=== PATIENT | female | born 1960 | race Hispanic/Latino ===

== ENCOUNTER 2017-01-30 21:46 | Emergency (ER) | payer OTHER ==
[2017-01-30] MEDS ORDERED: Ketorolac Tromethamine 30 MG/ML VIAL ONE (22:22)
--- NOTE | 2017-01-30 22:47 | RAD ---
RADIOGRAPH RIGHT HAND THREE VIEWS: History: 56-year-old female with right hand pain. FINDINGS: There is no dislocation. No evidence of fracture. Minimal/mild DJD at first CMC. Minimal DJD at first MCP. The rest of the joint spaces are maintained without erosions or osteophytes. No soft tissue kristi cifications. IMPRESSION: 1. Minimal/mild osteoarthrosis of the first carpometacarpal joint. 2. Otherwise essentially normal. POS: [facility]
== END 2017-01-30 22:49 | disposition home or self-care (01) ==
LOC: ERS 21:46
DX: M19.041 Primary osteoarthritis, right hand (principal); E11.9 Type 2 diabetes mellitus without complications; E66.9 Obesity, unspecified; F41.9 Anxiety disorder, unspecified; G56.02 Carpal tunnel syndrome, left upper limb; I10 Essential (primary) hypertension; Z79.84 Long term (current) use of oral hypoglycemic drugs
CPT/HCPCS: 96372; J1885

== ENCOUNTER 2017-08-23 22:02 | Emergency (ER) | payer OTHER, SELFPAY ==
[2017-08-24] MEDS ORDERED: Fluconazole 100 MG TAB PO SCH (01:15)
[2017-08-24 01:23] LABS: Bilirubin Negative (Negative); Blood, Urine Trace (Negative); Clarity CLEAR (Clear); Glucose, Urine (Dipstick) >=1000 mg/dL (Negative); Leukocyte Moderate (Negative); Nitrite Negative (Negative); Protein, Urine (Dipstick) Negative (Neg-Trace); Specific Gravity, Urine 1.043 (1.002-1.036); Urobilinogen 0.2 mg/dL (0.2-1.0); pH, Urine 5.5 (5.0-9.0)
[2017-08-24 01:25] LABS: Bacteria/HPF 1+ HPF (None Seen); Hyaline Casts/LPF 0-3 HYALINE CAST LPF (0-3 Hyaline); Pathc Cast-AUWi Flag 0.58 (0-2.49); RBC/HPF 0-3 HPF (0-3); Squamous Epithelial 0-3 HPF (0-3)
[2017-08-25 22:20] LABS: Chlamydia by PCR Not Detected (NotDetected); GC by PCR Not Detected (NotDetected)
== END 2017-08-24 02:12 | disposition home or self-care (01) ==
LOC: ERS 22:02
DX: B37.3 Candidiasis of vulva and vagina (principal); B37.2 Candidiasis of skin and nail; I10 Essential (primary) hypertension; E11.9 Type 2 diabetes mellitus without complications; E66.9 Obesity, unspecified; F41.9 Anxiety disorder, unspecified
CPT/HCPCS: 36416; 81003; 81015; 87086; 87480; 87491; 87510; 87591; 87660; 99283

== ENCOUNTER 2019-03-20 11:54 | Emergency (ER) | payer SELFPAY ==
[2019-03-20 13:38] LABS: #Basophils 0.1 thou/uL (0.0-0.2); #Eosinphils 0.1 thou/uL (0.0-0.7); #Lymphocytes 3.1 thou/uL (1.20-3.40); #Monocytes 0.6 thou/uL (0.11-0.59); #Neutrophils 5.7 thou/uL (1.40-6.50); %Basophils 1.1 % (0.0-1.0); %Eosinophils 1.3 % (0.0-10.0); %Lymphocytes 32.3 % (21.0-51.0); %Monocytes 6.1 % (0.0-10.0); %Neutrophils 59.2 % (42.0-75.0); Hemoglobin 14.7 g/dL (12.0-16.0); Mean Corpuscular HGB CONC 34.1 g/dL (32.0-36.0); Mean Corpuscular Hemoglobin 29.5 pg (27.0-31.0); Mean Corpuscular Volume 86.4 fL (78.0-98.0); Mean Platelet Volume 7.8 fL (7.4-10.4); Platelet Count 273 thou/uL (130-400); RBC Distribution Width 12.3 % (11.5-14.5); Red Blood Cell (RBC) Count 4.97 mill/uL (4.20-5.40); White Blood Cell (WBC) Count 9.6 thou/uL (4.8-10.8)
[2019-03-20] MEDS ORDERED: Ketorolac Tromethamine 30 MG/ML VIAL ONE (13:43)
[2019-03-20] MEDS ORDERED: Dexamethasone 10 MG/ML VIAL ONE (13:44)
--- NOTE | 2019-03-20 13:54 | CT ---
EXAM: CT cervical spine PROVIDED CLINICAL HISTORY: Left arm pain with onset of symptoms this morning. TECHNIQUE: Contiguous axial CT images are obtained through the cervical spine from the skull base to the T3 leve l. Sagittal and coronal reformatted images are provided. COMPARISON: 03/01/2015 FINDINGS: Again noted are large bridging osteophytes anteriorly at the C4-5 level. Mild scattered degenerative changes are again seen within the cervical and upper thoracic spine which is not significantly progressed when compared to the prior exam. There is no bony encroachment on the central spinal canal or neural foramina of the cervical spine. Prominent degenerative changes are seen at the articulation of the odontoid with the anterior arch of C1. No fracture or subluxation is seen involving the cervical spine. No prevertebral soft tissue swelling apparent. Visualized lung apices appear clear. Visualized thyroid gland demonstrates a grossly normal nonenhanced CT appearance. Incidental note is made of suggested empty sella turcica. Again noted is evidence of mastoid effusions involving a few right-sided mastoid air cells similar to prior exam. IMPRESSION: 1. No evidence for fracture or traumatic subluxation. 2. Degenerative changes in the cervical spine similar to study in 2016.
--- NOTE | 2019-03-20 14:02 | RAD ---
LEFT SHOULDER 3 VIEWS: Date: 03/20/2019 HISTORY: Shoulder pain. FINDINGS: There are degenerative changes at the shoulder. There is narrowing of the glenohumeral joint and ther e is spurring from the humeral head and acetabulum. Spurring is seen at the AC joint. Narrowing of th e subacromial space may indicate chronic rotator cuff tear. No fracture or acute abnormality. There is a round calcification along the humeral head superiorly suggesting a large focal spur from t he humeral head. IMPRESSION: Moderate degenerative changes at the shoulder as described. POS: [facility]
[2019-03-20 14:04] LABS: ALT (SGPT) 27 U/L (8-55); AST (SGOT) 19 U/L (5-34); Albumin 3.8 g/dL (3.5-5.0); Alkaline Phosphatase 160 U/L (40-110); Anion Gap 13 mmol/L (10-20); BUN (Urea Nitrogen) 10 mg/dL (9.8-20.1); Bilirubin, Total 0.6 mg/dL (0.2-1.2); CK (CPK) 34 U/L (29-168); Calc. Creatinine Clearance 0 mL/min (70-130); Calcium 9.7 mg/dL (7.8-10.44); Carbon Dioxide 27 mmol/L (22-29); Chloride 99 mmol/L (98-107); Estimated GFR-MDRD 83; Globulin 3.7 g/dL (2.4-3.5); Glucose 429 mg/dL (70-105); Lipase 42 U/L (8-78); Potassium 3.9 mmol/L (3.5-5.1); Protein, Total 7.5 g/dL (6.0-8.3); Sodium 135 mmol/L (136-145)
--- NOTE | 2019-03-20 14:11 | RAD ---
PORTABLE CHEST: HISTORY: Shoulder pain. COMPARISON: 12/03/2014. FINDINGS: Lungs appear clear. Heart size is mildly prominent but stable. Vasculature is upper normal and stab le. IMPRESSION: No evidence of acute process. POS: [facility]
== END 2019-03-20 14:36 | disposition home or self-care (01) ==
LOC: ERS 11:54
DX: M54.12 Radiculopathy, cervical region (principal); M25.512 Pain in left shoulder; E11.9 Type 2 diabetes mellitus without complications; E78.5 Hyperlipidemia, unspecified; E78.00 Pure hypercholesterolemia, unspecified; F41.9 Anxiety disorder, unspecified; Z79.899 Other long term (current) drug therapy
CPT/HCPCS: 71045; 72125; 80053; 82550; 83690; 84484; 85025; 93005; 96374; 96375; J1100; J1885

== ENCOUNTER 2019-07-28 17:00 | Emergency (ER) | payer OTHER, SELFPAY ==
--- NOTE | 2019-07-28 18:17 | RAD ---
CHEST ONE VIEW: 07/28/19 COMPARISON: 03/20/19. HISTORY: Positive COVID exposure. FINDINGS: Normal cardiac silhouette. The lungs and pleural spaces are clear. No pneumothorax or acute osseous a bnormalities. IMPRESSION: No acute cardiopulmonary process. POS: [facility]
[2019-07-29 12:38] LABS: SARS-CoV-2 MS2 Positive; SARS-CoV-2 N Gene Positive; SARS-CoV-2 S Gene Positive; SARS-CoV-2 orf1ab Positive
== END 2019-07-28 18:00 | disposition home or self-care (01) ==
LOC: ERS 17:00
DX: U07.1 COVID-19 (principal); E11.9 Type 2 diabetes mellitus without complications; E78.5 Hyperlipidemia, unspecified; I10 Essential (primary) hypertension; F41.9 Anxiety disorder, unspecified; Z79.899 Other long term (current) drug therapy
CPT/HCPCS: 71045; 87635; U0003